=== PATIENT | male | born 2000 | race Caucasian/White ===

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

== ENCOUNTER 2024-11-11 18:13 | Emergency (ER) | payer BC, OTHER ==
[~2024-11-11] VITALS: Ht 175.3 cm; Wt 61.4 kg
[2024-11-11 18:19] VITALS: BP 112/83; PULSE 70; RESP 14; TEMP 98.6; O2SAT 100
== END 2024-11-11 18:30 | disposition home or self-care (01) ==
LOC: EMS 18:20
DX: M53.3 Sacrococcygeal disorders, not elsewhere classified (principal); J45.909 Unspecified asthma, uncomplicated; M54.50 Low back pain, unspecified
CPT/HCPCS: 99282; Z7502

== ENCOUNTER 2024-11-18 09:01 | Emergency (ER) | payer OTHER ==
[~2024-11-18] VITALS: Ht 175.3 cm; Wt 63.6 kg
[2024-11-18 09:17] VITALS: BP 121/63; PULSE 70; RESP 16; TEMP 98.8; O2SAT 98
[2024-11-18] MEDS: KETOROLAC TROMETHAMINE 60 MG/2 ML VIAL IM ONE (11:56)
== END 2024-11-18 12:20 | disposition home or self-care (01) ==
LOC: EMS 09:39
DX: M54.50 Low back pain, unspecified (principal); J45.909 Unspecified asthma, uncomplicated; F12.90 Cannabis use, unspecified, uncomplicated
CPT/HCPCS: 99283; 96372; J1885